=== PATIENT | male | born 1980 | race Caucasian/White ===

== ENCOUNTER 2017-03-21 20:40 | Emergency (ER) | payer OTHER ==
[~2017-03-21] VITALS: Ht 172.7 cm; Wt 124.4 kg
[~2017-03-21 20:40] MED LIST: ALBUTEROL SULF8.5 GM IH; CELEXA20 MG PO; FIBER DIET1 EACH PO; FIBERCON625 MG PO; LAMICTAL100 MG; LAMICTAL25 MG PO; LEVAQUIN500 MG PO; LITHIUM CARBON300 M1 PO; LITHIUM CARBON600 MG PO; NEURONTIN300 MG PO; OPANA ER30 MG PO; OXYCODONE HCL 15 MG PO; OXYIR5 MG PO; PRAVACHOL10 MG PO; PREDNISONE10 M1 PO; ROBITUSSIN AC,T10 ML PO; STOOL SOFTENER50 MG PO; STRATTERA80 MG PO; TOPAMAX15 MG; TRILEPTAL600 MG PO; VENTOLIN HFA18 GM IH; VIBRAMYCIN100 MG PO; XANAX0.125 MG; ZESTRIL,PRINIV2.5 MG; ZESTRIL,PRINIVI20 MG PO
[2017-03-21] MEDS ORDERED: ZITHROMAX Z-PA250 MG PO (23:03)
[2017-03-21] MEDS ORDERED: PREDNISONE10 M1 PO (23:03)
[2017-03-21] MEDS ORDERED: TESSALON PERLE100 MG PO (23:03)
[2017-03-21] MEDS ORDERED: PROVENTIL,2.5 MG/3 M IH (23:07)
[2017-03-21 23:37] VITALS: BP 139/80
== END 2017-03-21 23:41 | disposition home or self-care (01) ==
LOC: RME 20:40 → EME 20:40 → RME 23:41
DX: J20.9 Acute bronchitis, unspecified (principal); F17.200 Nicotine dependence, unspecified, uncomplicated; E78.5 Hyperlipidemia, unspecified
CPT/HCPCS: 71020; 94640; 99281; 99284

== ENCOUNTER 2017-09-05 05:42 | Day surgery (SDC) | payer OTHER ==
[~2017-09-05] VITALS: Ht 172.7 cm; Wt 125.0 kg
[~2017-09-05 05:42] MED LIST changes: +CELEXA10 MG PO; +MOTRIN800 MG PO; +PRINIVIL20 MG PO; +PROVENTIL,2.5 MG/3 M IH; +TESSALON PERLE100 MG PO; +ZITHROMAX Z-PA250 MG PO
[2017-09-05 06:30] VITALS: BP 123/75
[2017-09-05] MEDS ORDERED: OXYCODONE HCL10 MG PO (10:00)
[2017-09-05] MEDS ORDERED: TRAMADOL HCL50 MG PO (10:00)
[2017-09-05 11:50] VITALS: BP 145/76
[2017-09-05 12:50] VITALS: BP 131/69
== END 2017-09-05 13:15 | disposition home or self-care (01) ==
LOC: SDC 05:42
PROC: 0WUF0JZ Supplement Abdominal Wall with Synthetic Substitute, Open Approach (ICD-10-PCS; principal; 2017-09-05)
DX: K43.0 Incisional hernia with obstruction, without gangrene (principal); E66.01 Morbid (severe) obesity due to excess calories; Z68.41 Body mass index [BMI] 40.0-44.9, adult; I10 Essential (primary) hypertension; J45.909 Unspecified asthma, uncomplicated; K21.9 Gastro-esophageal reflux disease without esophagitis; Z88.0 Allergy status to penicillin; F17.210 Nicotine dependence, cigarettes, uncomplicated; G47.30 Sleep apnea, unspecified
CPT/HCPCS: C1781; J0330; J0690; J1100; J1170; J1885; J2001; J2250; J2405; J2710; J2795; J3010; J3475; J7120; S0020